=== PATIENT | female | born 1955 | race Hispanic/Latino ===

== ENCOUNTER 2018-12-19 02:17 | Emergency (ER) | payer BC, MEDICARE ==
[~2018-12-19] VITALS: Ht 149.9 cm; Wt 61.2 kg
--- OUTSIDE RECORDS SUMMARY | 2018-12-19 02:20 | XMS REPORT | Summary of Care ---
Author Organization Unknown Address Unknown Phone Unavailable Encounter HQ Rosanne(GREG) [id number] Date(s): 05/18/15 - 05/18/15 [facility] [address] Outpatient Imaging [facility] [address] [place] [address] [address] [place], [place] [address]- [phone] Discharge Disposition: Home Physician Attending: Elisha Purcell MD Vital Signs No data available for this section Problem List Condition Effective Dates Status Health Status Informant Acute laryngitis1 05/11/15 Active Acute pharyngitis2 05/11/15 Active Anemia3 05/23/12 Active Benign hypertension4 Active Diverticular disease Active of colon5 Gastroesophageal 01/13/11 Active reflux disease6 Hemangioma of liver7 Active Hypercholesterolemia Active 8 Microscopic 05/13/15 Active hematuria9 Zgafhjwqykojru19 Active Roqfzqzaps89 Active Physical examination 05/11/15 Active yxhuiynvh47 Spasm of back 09/12/14 Active npdjdci26, 14, 15 Tension-type 01/12/15 Active minaqjjy83, 17 Urinary tract 05/13/15 Active infectious syyrboy99 1Data migrated from [employer] on 05/20/15. 2Data migrated from [employer] on 05/20/15. 3Data migrated from [employer] on 04/11/15. 4Data migrated from [employer] on 04/11/15. 5Data migrated from [employer] on 04/11/15. 6Data migrated from [employer] on 04/11/15. 7Data migrated from [employer] on 04/11/15. 8Data migrated from [employer] on 04/11/15. 9Data migrated from [employer] on 05/20/15. 10Data migrated from [employer] on 04/11/15. 11Data migrated from [employer] on 04/11/15. 12Data migrated from [employer] on 05/20/15. 13Data migrated from [employer] on 05/20/15. 14Data migrated from [employer] on 04/14/15. 15Data migrated from [employer] on 04/11/15. 16Data migrated from [employer] on 05/20/15. 17Data migrated from [employer] on 04/14/15. 18Data migrated from [employer] on 05/20/15. Allergies, Adverse Reactions, Alerts Substance Reaction Severity Status ciprofloxacin1 Active 1Data migrated from [employer] on 03/10/15. Originally documented as CIPRO. Medications No data available for this section Results No data available for this section Immunizations No data available for this section Procedures No data available for this section Social History No data available for this section Assessment and Plan No data available for this section
--- OUTSIDE RECORDS SUMMARY | 2018-12-19 02:20 | XMS REPORT | Continuity of Care Document ---
Author Author [facility] Interface Address Unknown Phone Unavailable Problems Problem Status Onset Date Classification Date Reported Comments Source Acute URI Resolved 05/22/2017 Problem 11/29/2018 [facility] Dizziness Resolved 01/18/2017 Problem 11/29/2018 [facility] Hypercholesterolemia Resolved 01/18/2017 Problem 11/29/2018 [facility], [facility] Z12.31 - ENCNTR SCREEN MAMMOGRAM FOR MA Active 12/16/2016 [facility] K55.8 Active 05/06/2016 [facility] K55.8 COLITIS, OTHER VASCULAR DISORDERS Active 05/06/2016 [facility] DX: M54.5 Active 03/10/2016 [facility] Microscopic hematuria<sup>10</sup> Resolved 05/13/2015 Problem 11/29/2018 Data migrated from [employer] on 05/20/15. [facility] Microscopic hematuria<sup>9</sup> Active 05/13/2015 Problem 05/21/2015 9Data migrated from [employer] on 05/20/15. [facility] Urinary tract infectious disease<sup>18</sup> Active 05/13/2015 Problem 05/21/2015 18Data migrated from [employer] on 05/20/15. [facility] Acute laryngitis<sup>1</sup> Resolved 05/11/2015 Problem 11/29/2018 Data migrated from [employer] on 05/20/15. [facility] Acute pharyngitis<sup>2</sup> Resolved 05/11/2015 Problem 11/29/2018 Data migrated from [employer] on 05/20/15. [facility] Physical examination procedure<sup>14</sup> Resolved 05/11/2015 Problem 11/29/2018 Data migrated from [employer] on 05/20/15. [facility], [place] Physical examination procedure<sup>12</sup> Active 05/11/2015 Problem 05/21/2015 12Data migrated from [employer] on 05/20/15. [facility] Tension-type headache<sup>18, 19</sup> Resolved 01/12/2015 Problem 11/29/2018 Data migrated from [employer] on 04/14/15. [facility], [place] Tension-type headache<sup>16, 17</sup> Active 01/12/2015 Problem 05/21/2015 17Data migrated from [employer] on 04/14/15. [facility] Spasm of back muscles<sup>15, 16, 17</sup> Resolved 09/12/2014 Problem 11/29/2018 Data migrated from [employer] on 04/11/15. [facility], [place] Spasm of back muscles<sup>13, 14, 15</sup> Active 09/12/2014 Problem 05/21/2015 15Data migrated from [employer] on 04/11/15. [facility] Urinary tract infectious disease<sup>20, 21, 22</sup> Resolved 10/17/2013 Problem 11/29/2018 Data migrated from [employer] on 05/20/15. [facility], [place] HYPERTENSION Active 03/26/2013 [facility] Otalgia<sup>13</sup> Resolved 11/29/2012 Problem 11/29/2018 Data migrated from [employer] on 05/29/15. [facility], [place] Acute urinary tract infection<sup>3</sup> Resolved 09/18/2012 Problem 11/29/2018 Data migrated from [employer] on 05/29/15. [facility], [place] Anemia<sup>4</sup> Resolved 05/23/2012 Problem 11/29/2018 Data migrated from [employer] on 04/11/15. [facility], [place] Anemia<sup>3</sup> Active 05/23/2012 Problem 05/21/2015 3Data migrated from [employer] on 04/11/15. [facility] V76.12 - SCREEN MAMMOGRA Active 10/24/2011 [facility] Gastroesophageal reflux disease<sup>7</sup> Active 01/13/2011 Problem 11/29/2018 Data migrated from [employer] on 04/11/15. [facility], [place],[facility] Gastroesophageal reflux disease<sup>6</sup> Active 01/13/2011 Problem 05/21/2015 6Data migrated from [employer] on 04/11/15. [facility] Hip pain Active Problem 11/29/2018 [facility], [facility] Benign hypertension<sup>5</sup> Active Problem 11/29/2018 Data migrated from [employer] on 04/11/15. [facility], [place] Bone disorder Active Problem 11/29/2018 [facility], [facility] Diverticular disease of colon<sup>6</sup> Active Problem 11/29/2018 Data migrated from [employer] on 04/11/15. [facility], [place] Epigastric pain Active Problem 11/29/2018 [facility], [facility] Bad odor of urine Resolved Problem 11/29/2018 [facility], [facility] Headache Resolved Problem 11/29/2018 [facility], [facility] Hemangioma of liver<sup>8</sup> Active Problem 11/29/2018 Data migrated from [employer] on 04/11/15. [facility], [place] HTN - Hypertension Resolved Problem 11/29/2018 [facility], [facility] Hypercholesterolemia<sup>9</sup> Active Problem 11/29/2018 Data migrated from [employer] on 04/11/15. [facility], [place] Physical exam Active Problem 11/29/2018 [facility], [facility] Osteoarthritis<sup>11</sup> Active Problem 11/29/2018 Data migrated from [employer] on 04/11/15. [facility] Osteoarthritis Active Problem 11/29/2018 [facility] Osteopenia<sup>12</sup> Active Problem 11/29/2018 Data migrated from [employer] on 04/11/15. [facility] Osteopenia Resolved Problem 11/29/2018 [facility] Hyperlipidemia Active Problem 11/29/2018 [facility] Dysuria Active Problem 11/29/2018 [facility] Benign hypertension<sup>4</sup> Active Problem 05/21/2015 4Data migrated from [employer] on 04/11/15. [facility] Diverticular disease of colon<sup>5</sup> Active Problem 05/21/2015 5Data migrated from [employer] on 04/11/15. [facility] Hemangioma of liver<sup>7</sup> Active Problem 05/21/2015 7Data migrated from [employer] on 04/11/15. [facility] Hypercholesterolemia<sup>8</sup> Active Problem 05/21/2015 8Data migrated from [employer] on 04/11/15. [facility] Osteoarthritis<sup>10</sup> Active Problem 05/21/2015 10Data migrated from [employer] on 04/11/15. [facility] Osteopenia<sup>11</sup> Active Problem 05/21/2015 11Data migrated from [employer] on 04/11/15. [facility] FHx: diabetes mellitus Active Problem 11/29/2018 [facility] OTHER VASCULAR DISORDERS OF INTESTINE Active [facility] Medications Medication Details Route Status Patient Instructions Ordering Provider Order Date Source {4 (risedronate sodium 35 MG Enteric Coated Tablet) } Pack [Atelvia] 35 mg=1 tab, PO, qWeek, # 12 tab, 3 Refill(s), Pharmacy: [id number] Active 07/24/2018 [facility] lisinopril 10 mg oral tablet 10 mg=1 tab, PO, Daily, # 90 tab, 2 Refill(s), Pharmacy: [id number] Active 07/24/2018 [facility] Nitrofurantoin 100 MG Oral Capsule [Macrobid] 100 mg=1 cap, PO, BID, X 7 day, # 14 cap, 0 Refill(s), Pharmacy: [facility] Active 05/02/2018 [facility] Sulfamethoxazole 800 MG / Trimethoprim 160 MG Oral Tablet [Bactrim] 1 tab, PO, BID, for UTI, X 3 day, # 6 tab, 0 Refill(s), Pharmacy: [id number] Active 04/24/2018 [facility] lisinopril 10 mg oral tablet 10 mg=1 tab, PO, Daily, # 90 tab, 2 Refill(s), Pharmacy: [facility] Active 01/16/2018 Medical [facility] Nitrofurantoin 100 MG Oral Capsule [Macrobid] 100 mg=1 cap, PO, BID, X 7 day, # 14 cap, 0 Refill(s), Pharmacy: [facility] No Longer Active 11/23/2017 Medical [facility] ibuprofen 800 mg oral tablet 800 mg=1 tab, PO, Q8H, # 30 tab, 1 Refill(s), Pharmacy: [facility] Active 11/20/2017 Medical Group {4 (risedronate sodium 35 MG Enteric Coated Tablet) } Pack [Atelvia] 35 mg=1 tab, PO, qWeek, # 12 tab, 3 Refill(s), Pharmacy: [facility] Active 10/02/2017 Medical [facility] lisinopril 10 mg oral tablet 10 mg=1 tab, PO, Daily, # 90 tab, 1 Refill(s), Pharmacy: [facility] Active 10/02/2017 [facility] Sulfamethoxazole 800 MG / Trimethoprim 160 MG Oral Tablet [Bactrim] 1 tab, PO, BID, for UTI, X 3 day, # 6 tab, 0 Refill(s), Pharmacy: [facility] Active 10/02/2017 [facility] Drug Treatment Unknown - unknown Active [facility] Allergies, Adverse Reactions, Alerts Substance Category Reaction Severity Reaction type Status Date Reported Comments Source ciprofloxacin<sup>1</sup> Assertion Drug allergy Active 10/17/2013 1Data migrated from [employer] on 03/10/15. Originally documented as [facility]. [facility] Allergies Unknown propensity to adverse reactions [facility] Immunizations Immunization Date Given Site Status Last Updated Comments Source influenza virus vaccine, inactivated 07/24/2018 Right Deltoid completed [facility] influenza virus vaccine, inactivated<sup>1</sup> 07/19/2017 Right Deltoid completed [facility] Result Comment: Lot#: [id number] Exp: 05-12-2018 [facility]: [id number] Location:Right Deltoid Patient did well before and after the injection. [facility] influenza virus vaccine, inactivated 09/13/2016 Right Deltoid completed [facility] Results Order Name Results Value Reference Range Date Interpretation Comments Source Bone Density [employer] MA Bone Density [employer] MA BONE DENSITY EVALUATION: 10/09/2017 CLINICAL DATA: Post menopausal and follow-up to previous study. /M89.9 Disorder Of Bone, Unspecified DISEASE HISTORY: Rheumatoid arthritis. COMPARISON: 10/03/2016 Right femur neck using a Hologic unit from [facility] with reported medium fracture risk, BMD of 0.665g/cm2, T- score of -1.70, and Z-score of -0.40. 10/03/2016 Left femur neck using a Hologic unit from [facility] with reported medium fracture risk, BMD of 0.603g/cm2, T- score of -2.20, and Z-score of -0.90. 10/03/2016 AP L1-L4 region of spine using a Hologic unit from [facility] with reported normal fracture risk, BMD of 0.958g/cm2, T-score of -0.80, and Z-score of 0.80. FINDINGS: Bone density evaluation was performed 10/09/2017 on the right femur neck using a Hologic unit. The BMD average for the exam is 0.693 g/cm2. The T-score is - 1.40 and the Z-score is -0.10. Since the previous similar exam of 10/03/2016, there has been a +0.028 or +4.2% change in the BMD value which represents no significant interval change in bone density. This matches the World Health Organization's criteria for osteopenia and places the patient at a medium risk for fracture. An additional bone density evaluation was performed 10/09/2017 on the left femur neck using a Hologic unit. The BMD average for the exam is 0.591 g/cm2. The T- score is -2.30 and the Z-score is -1.00. Since the previous similar exam of 10/03/2016, there has been a -0.012 or -2.0% change in the BMD value which represents no significant interval change in bone density. This matches the World Health Organization's criteria for osteopenia and places the patient at a medium risk for fracture. An additional bone density evaluation was performed 10/09/2017 on the AP L1-L4 region of spine using a Hologic unit. The BMD average for the exam is 0.958 g/cm2. The T-score is -0.80 and the Z-score is 0.90. Since the previous similar exam of 10/03/2016, there has been no change in bone density. This matches the World Health Organization's criteria for normal bone density and places the patient within normal limits of fracture risk. IMPRESSION: OSTEOPENIA Patient is at medium risk for fracture. Compared to BMD of prior exam, there has been no significant change in bone density. Patient consult w/primary care provider is recommended. This exam was interpreted at [id number] at [facility]. Ioana mckeon/penrad:10/09/2017 12:51:42 Public Affairs Director(s): Trisha ARZATE)(M), [facility] 10/09/2017 - - Read by: Ioana Lowe MD Dictated Date/time: 10/09/17 12:51 Electronically Signed by: Ioana Lowe MD 10/09/17 12:51 FINAL REPORT [facility] Abdomen LUQ US Abdomen LUQ US Patient Name: KWASI GENTILE : 1955; Age: 61 years y/o Female MR: [id number] Study: Abdomen LUQ US 10/26/2016 2:23 PM DINING ROOM COORDINATOR Ordering Physician: Elisha Lassiter MD Clinical Indication: Left upper abdominal quadrant pain for 2 months. Comparison: 12/16/2009 TECHNIQUE: Grayscale and limited color sonographic evaluation of the left upper abdominal quadrant was performed with standard technique. FINDINGS: PANCREAS: The visualized portions of the pancreas are normal. LEFT KIDNEY: Mild left renal cortical atrophy. A small well marginated hyperechoic lesion measuring 1.0 cm (previously 0.8 cm) is seen in the midportion of the left kidney exhibiting fat attenuation on prior imaging consistent with angiomyolipoma. Size: 9.2 x 3.9 x 3.2 cm. SPLEEN: Normal size, shape, and echotexture without enlargement or discrete lesion. Spleen size: 9.2 cm at maximum. IMPRESSION: 1. Mild left renal cortical atrophy. 2. Slightly increasing size hyperattenuating left renal lesion consistent with angiomyolipoma on prior CT. SL: [id number] 10/26/2016 - - Read by: Rigo Lau MD Dictated Date/time: 10/26/16 15:28 Electronically Signed by: Rigo Lau MD 10/26/16 15:35 FINAL REPORT [facility] Bone Density DXA Dual [employer] MA Bone Density DXA [employer] MA - Bone Density DXA [employer] MA BONE DENSITY EVALUATION: 10/03/2016 CLINICAL DATA: Post menopausal. COMPARISON: 05/18/2015 Right femur neck using [employer] X-Ray Absorptiometry from [facility] with reported medium fracture risk, BMD of 0.802g/cm2, T-score of -1.70, Z-score of -0.20, 77.0% reference and 97.0% age-match bone mineralization. 05/18/2015 Left femur neck using [employer] X-Ray Absorptiometry from [facility] with reported medium fracture risk, BMD of 0.711g/cm2, T-score of -2.40, Z-score of -0.80, 68.0% reference and 86.0% age-match bone mineralization. 05/18/2015 AP L1-L4 region of spine using Lun[employer] X-Ray Absorptiometry from [facility] with reported normal fracture risk, BMD of 1.232g/cm2, T-score of 0.40, Z-score of 2.10, 104.0% reference and 125.0% age-match bone mineralization. FINDINGS: Bone density evaluation was performed 10/03/2016 on the AP L1-L4 region of spine using a Hologic unit. The BMD average for the exam is 0.958 g/cm2. The T-score is -0.80 and the Z-score is 0.80. This matches the World Health Organization's criteria for normal bone density and places the patient within normal limits of fracture risk. An additional bone density evaluation was performed 10/03/2016 on the right femur neck using a Hologic unit. The BMD average for the exam is 0.665 g/cm2. The T-score is -1.70 and the Z-score is -0.40. This matches the World Health Organization's criteria for osteopenia and places the patient at a medium risk for fracture. An additional bone density evaluation was performed 10/03/2016 on the left femur neck using a Hologic unit. The BMD average for the exam is 0.603 g/cm2. The T- score is -2.20 and the Z-score is -0.90. This matches the World Health Organization's criteria for osteopenia and places the patient at a medium risk for fracture. IMPRESSION: OSTEOPENIA Patient is at medium risk for fracture. Professional services are provided by the [facility]. This exam was dictated and interpreted by [id number] at [facility]. Negrito Nieves M.D., jp/shaylee:10/03/2016 17:17:34 Public Affairs Director: Maday Ambriz, [facility] 10/03/2016 - - Read by: Negrito Nieves MD Dictated Date/time: 10/03/16 17:17 Electronically Signed by: Negrito Nieves MD 10/03/16 17:17 FINAL REPORT [facility] CHEM PANEL POC Creatinine 0.9 mg/dL 0.5 - 1.4 05/11/2016 [facility] CHEM PANEL eGFR 69 mL/min/1.73m2 05/11/2016 Result Comment: The eGFR is calculated using the CKD-EPI formula. In most young, healthy individuals the eGFR will be >90 mL/min/1.73m2. The eGFR declines with age. An eGFR of 60-89 may be normal in some populations, particularly the elderly, for whom the CKD-EPI formula has not been extensively validated. Use of the eGFR is not recommended in the following populations: Individuals with unstable creatinine concentrations, including patients and those with serious co-morbid conditions. Patients with extremes in muscle mass or diet. The data above are obtained from the National Kidney Disease Education Program (NKDEP) which additionally recommends that when the eGFR is used in patients with extremes of body mass index for purposes of drug dosing, the eGFR should be multiplied by the estimated BMI. [facility] Abdomen w/wo contrast MRA Abdomen w/wo contrast MRA Study: Abdomen w/wo contrast MRA Age Female 60 years old Clinical Indication: K55.8 Other vascular disorders of intestine; Comparison: None Technique: Contrast-enhanced images of the aorta have been performed in sagittal projection after bolus administration of 22 mL of Dotarem gadolinium contrast. Findings: The examination reveals smooth aortic contour from the aortic valve to the bifurcation. There is no evidence of aneurysm or dissection. There is some mild narrowing of the origin of the celiac axis. (Series 6C image 228) The superior mesenteric artery is patent at its origin. The renal arteries appear patent bilaterally. There is no significant atherosclerosis of the iliac vessels. IMPRESSION: 1. Mild narrowing of the origin of the celiac axis (less than 50%). 2. Normal appearance of the superior mesenteric and renal vessels. 3. Otherwise negative MRA of the thoracic and abdominal aorta. SL: [id number] 05/11/2016 - - Read by: Dhaval Herrera MD Dictated Date/time: 05/12/16 08:48 Electronically Signed by: Dhaval Herrera MD 05/12/16 09:[address] [facility] Renal Lasix Scan RI Renal Lasix Scan RI DIURETIC RENAL SCAN: PROCEDURE: 10.0 mCi of technetium 99m MAG3 were given intravenously followed by posterior perfusion and static imaging of the urinary tract. 40 mg of furosemide were given intravenously 15 minutes following injection of radionuclide. Quantitative values and time/activity curves were generated. HISTORY: Low back pain COMPARISON: CT abdomen dated 12/28/2009 FINDINGS: Blood flow images reveal normal perfusion of both kidneys. Functional imaging over 30 minutes reveals normal concentration and excretion phases bilaterally. There is normal excretion from both kidneys prior to Lasix administration. The following quantitative measures were obtained: Time to peak parenchymal activity (normal equals 3-5 minute/180-300 seconds) Right: 2.4 minutes Left: 2.4 minutes Half time excretion (normal equals 8-12 minutes/480-720 seconds) Right: 8 minutes Left: 6 minutes Percent uptake: Right: 47 % Left: 53 % ERPF: Right: 182 mL/min Left: 201 mL/min 30 minute:peak ratio (normal equal to or less than 0.3) Right: 0.12 Left: 0.11 T half post Lasix (normal less than 10 minutes, hydronephrosis greater than 20 minutes). Right: Not applicable Left: Not applicable IMPRESSION: Normal examination. SL: [id number] 03/15/2016 - - Read by: Jayme Morris MD Dictated Date/time: 03/15/16 13:28 Electronically Signed by: Jayme Morris MD 03/15/16 13:32 FINAL REPORT [facility] Bone Density DXA Dual Energy MA Bone Density DXA [employer] MA - Bone Density DXA [employer] MA BONE DENSITY EVALUATION: 05/18/2015 CLINICAL DATA: Clinical risk for osteoporosis. COMPARISON: 02/29/2008 Left femur neck using a Hologic unit from [facility] with reported medium fracture risk, BMD of 0.711g/cm2, T- score of -1.40, Z-score of -0.30, 81.0% reference and 95.0% age-match bone mineralization. 02/29/2008 AP L1-L4 region of spine using a Hologic unit from [facility] with reported normal fracture risk, BMD of 1.080g/cm2, T-score of 0.30, Z-score of 1.30, 103.0% reference and 116.0% age- match bone mineralization. FINDINGS: Bone density evaluation was performed 05/18/2015 on the AP L1-L4 region of spine using Lunar [employer] Energy X-Ray Absorptiometry. The BMD average for the exam is 1.232 g/cm2. The T-score is 0.40 and the Z-score is 2.10. These values indicate 104.0% of bone mineralization for young normals and 125.0% for age- matched controls. This matches the World Health Organization's criteria for normal bone density and places the patient within normal limits of fracture risk. An additional bone density evaluation was performed 05/18/2015 on the right femur neck using Lunar [employer] X-Ray Absorptiometry. The BMD average for the exam is 0.802 g/cm2. The T-score is -1.70 and the Z-score is -0.20. These values indicate 77.0% of bone mineralization for young normals and 97.0% for age-matched controls. This matches the World Health Organization's criteria for osteopenia and places the patient at a medium risk for fracture. An additional bone density evaluation was performed 05/18/2015 on the left femur neck using [employer] X-Ray Absorptiometry. The BMD average for the exam is 0.711 g/cm2. The T-score is -2.40 and the Z-score is -0.80. These values indicate 68.0% of bone mineralization for young normals and 86.0% for age- matched controls. This matches the World Health Organization's criteria for osteopenia and places the patient at a medium risk for fracture. IMPRESSION: OSTEOPENIA Based on T-scores, if the patient is postmenopausal or in the menopausal transition, the patient is considered at medium risk for fracture. However, the patient estrada on her intake questionnaire that she has not gone through menopause, in which case interpretation would optimally be based on Z-scores, which are within the expected range for age. Patient consult w/primary care provider and correlation with menopausal status is recommended. This exam was dictated and interpreted by [address] [place] [address]. Rola Torres M.D. dl/:05/19/2015 10:18:31 Public Affairs Director: Trisha ARZATE)(Joy), [facility] [facility] 05/18/2015 - - Read by: Rola Torres MD Dictated Date/time: 05/19/15 10:18 Electronically Signed by: Rola Torres MD 05/19/15 10:18 FINAL REPORT OLIVIA [facility] Vital Signs Vital Sign Value Date Comments Source Height 147.32 cm 07/24/2018 [facility] Weight 61.364 07/24/2018 [facility] BMI Calculated 28.27 07/24/2018 [facility] Heart Rate 71 07/24/2018 [facility] Respitory Rate 20 07/24/2018 [facility] Temperature Oral (F) 97.9 F 07/24/2018 [facility] Systolic (mm Hg) 135 07/24/2018 [facility] Diastolic (mm Hg) 80 07/24/2018 [facility] BMI Calculated 27.23 04/24/2018 [facility] Weight 59.091 04/24/2018 [facility] Height 147.32 cm 04/24/2018 [facility] Heart Rate 84 04/24/2018 [facility] Temperature Oral (F) 98.2 F 04/24/2018 [facility] Systolic (mm Hg) 113 04/24/2018 [facility] Diastolic (mm Hg) 74 04/24/2018 [facility] BMI Calculated 26.81 01/16/2018 [facility] Weight 58.182 01/16/2018 [facility] Temperature Oral (F) 97.9 F 01/16/2018 [facility] Heart Rate 71 01/16/2018 [facility] Height 147.32 cm 01/16/2018 [facility] Systolic (mm Hg) 114 01/16/2018 [facility] Diastolic (mm Hg) 78 01/16/2018 [facility] Weight 57.784 11/20/2017 [facility] BMI Calculated 25.73 11/20/2017 [facility] Height 149.86 cm 11/20/2017 [facility] Temperature Oral (F) 97.9 F 11/20/2017 [facility] Heart Rate 76 11/20/2017 [facility] Systolic (mm Hg) 110 11/20/2017 [facility] Diastolic (mm Hg) 70 11/20/2017 [facility] Weight 128 10/16/2017 [facility] Height 149.86 cm 10/02/2017 [facility] Weight 58.636 10/02/2017 [facility] BMI Calculated 26.11 10/02/2017 [facility] Temperature Oral (F) 98.4 F 10/02/2017 [facility] Heart Rate 71 10/02/2017 [facility] Systolic (mm Hg) 121 10/02/2017 [facility] Diastolic (mm Hg) 77 10/02/2017 [facility] Group Encounters Location Location Details Encounter Type Encounter Number Reason For Visit Attending Provider ADM Date DC Date Status Source Outpatient [id number] V76.12 - SCREEN MAMMOGRA TERESA SOW 11/21/2011 Active MH OPID [facility] Outpatient Imaging [facility] Outpatient [id number] Elisha Lassiter 05/18/2015 05/19/2015 MH OPID [facility] Outpatient [id number] ELIHSA LASSITER 08/13/2015 Active [facility] Outpatient [id number] ELISHA LASSITER 11/18/2015 Active [facility] Outpatient [id number] ELISHA LASSITER 11/19/2015 Active [facility] Outpatient [id number] ELISHA LASSITER 01/01/2016 Active [facility] Outpatient [id number] Teodoro Eli DAVID 03/15/2016 03/16/2016 [facility] Outpatient [id number] ELISHA LASSITER 03/23/2016 Active [facility] Outpatient [id number] Yevgeniy Palmer 05/11/2016 05/12/2016 [facility] Outpatient [id number] ELISHA LASSITER 05/19/2016 Active [facility] Outpatient [id number] ELISHA LASSITER 09/13/2016 Active [facility] Outpatient Imaging [facility] Outpatient [id number] Elisha Lassiter 10/03/2016 10/04/2016 MH OPID [facility] Outpatient [id number] JARVIS DYER 10/17/2016 Active [facility] Outpatient [id number] ELISHA LASSITER 10/26/2016 Active [facility] Outpatient Imaging [facility] Outpt Diag Services [id number] Elisha Lassiter 10/26/2016 10/27/2016 MH OPID [facility] Outpatient [id number] ELISHA LASSITER 01/18/2017 Active [facility] Outpatient [id number] ELISHA LASSITER 05/22/2017 Active [facility] Outpatient [id number] ELISHA LASSITER 07/19/2017 Active [facility] Outpatient [id number] ELISHA LASSITER 10/02/2017 Active [facility] Primary Care [facility] Outpatient [id number] Elisha Lassiter 10/02/2017 10/03/2017 Medical Group [facility] Outpatient Imaging [facility] Outpatient [id number] Elisha Lassiter 10/09/2017 10/10/2017 MH OPID [facility] Outpatient [id number] ELISHA LASSITER 11/20/2017 Active [facility] Primary Care [facility] Outpatient [id number] Elisha Lassiter 11/20/2017 11/21/2017 [facility] Group Outpatient [id number] ELISHA LASSITER 01/16/2018 Active [facility] Primary Care [facility] Outpatient [id number] Elisha Lassiter 01/16/2018 01/17/2018 [facility] Group Outpatient [id number] ELISHA LASSITER 04/24/2018 Active [facility] Primary Care [facility] Outpatient [id number] Elisha Lassiter 04/24/2018 04/25/2018 Medical Group [facility] Primary Care [facility] Phone Message [id number] 05/01/2018 05/03/2018 Medical [facility] Outpatient [id number] ELISHA LASSITER 07/24/2018 Active [facility] Primary Care [facility] Outpatient [id number] Elisha Lassiter 07/24/2018 2018 Medical [facility] Outpatient [id number] ELISHA LASSITER 10/18/2018 Active [facility] Outpatient [id number] ELISHA LASSITER 12/20/2018 Active [facility] Outpatient [id number] ELISHA LASSITER 01/21/2019 Active [facility] Outpatient [id number] HYPERTENSION CARIN ELISHAATES Cancel [facility] Procedures Procedure Code Date Perfomer Comments Source Colonoscopy<sup>1</sup> [id number] 06/13/2018 Diverticulosis in the sigmoid colon Repeat in 10 years. [facility] Mammogram<sup>1</sup> [id number] 12/01/2017 normal, at [facility] Mammogram<sup>2</sup> [id number] 12/01/2017 normal, at [facility] Health Education/Supportive Counseling HE001 10/17/2017 Carlos Jeffries Health Education/Supportive Counseling HE001 09/18/2017 Carlos Jeffries Pap smear and HPV cotesting [id number] 09/15/2017 [facility] Health Education/Supportive Counseling HE001 08/18/2017 Carlos Jeffries section [id number] Medical Group Suspension of bladder [id number] Medical Group section [id number] OPID [facility] Suspension of bladder [id number] OPID [facility] section [id number] [facility] Suspension of bladder [id number] [facility] section [id number] [facility] Suspension of bladder [id number] [facility]
--- OUTSIDE RECORDS SUMMARY | 2018-12-19 02:21 | XMS REPORT | Summary of Care ---
Author Author [facility] Organization [facility] Address Unknown Phone Unavailable Encounter KANDY Lay(GREG) [id number] Date(s): 03/15/16 - 03/15/16 [facility] [address] [place] [address]- [phone] Discharge Disposition: Home Attending Physician: Teodoro Friedman MD Referring Physician: Teodoro Friedman MD Vital Signs No data available for this section Problem List Condition Effective Dates Status Health Status Informant Acute laryngitis1 05/11/15 Resolved Acute pharyngitis2 05/11/15 Resolved Acute urinary tract 09/18/12 Resolved infection3 Anemia4 05/23/12 Active Benign hypertension5 Active Diverticular disease Active of colon6 Gastroesophageal 01/13/11 Active reflux disease7 Hemangioma of liver8 Active HTN - Resolved Hypertension(Confirm ed) Hypercholesterolemia Active 9 Hypercholesterolemia Resolved (Confirmed) Microscopic 05/13/15 Resolved lkajnlupg24 Cteyxbklrjgtkm91 Active Osteoarthritis(Confi Resolved rmed) Tofdpzjjay55 Active Osteopenia(Confirmed Resolved ) Hsjfpjm03 11/29/12 Resolved Physical examination 05/11/15 Active kosegoobb04 Spasm of back 09/12/14 Resolved ipiagvf34, 16, 17 Tension-type 01/12/15 Resolved weyaxvvz83, 19 Urinary tract 10/17/13 Resolved infectious bykmcuu72, 21, 22 1Data migrated from [employer] on 05/20/15. 2Data migrated from [employer] on 05/20/15. 3Data migrated from [employer] on 05/29/15. 4Data migrated from [employer] on 04/11/15. 5Data migrated from [employer] on 04/11/15. 6Data migrated from [employer] on 04/11/15. 7Data migrated from [employer] on 04/11/15. 8Data migrated from [employer] on 04/11/15. 9Data migrated from [employer] on 04/11/15. 10Data migrated from [employer] on 05/20/15. 11Data migrated from [employer] on 04/11/15. 12Data migrated from [employer] on 04/11/15. 13Data migrated from [employer] on 05/29/15. 14Data migrated from [employer] on 05/20/15. 15Data migrated from [employer] on 05/20/15. 16Data migrated from [employer] on 04/14/15. 17Data migrated from [employer] on 04/11/15. 18Data migrated from [employer] on 05/20/15. 19Data migrated from [employer] on 04/14/15. 20Data migrated from [employer] on 05/29/15. 21Data migrated from [employer] on 05/29/15. 22Data migrated from [employer] on 05/20/15. Allergies, Adverse Reactions, Alerts Substance Reaction Severity Status NKDA Active Medications No data available for this section Results No data available for this section Immunizations No data available for this section Procedures Procedure Date Related Diagnosis Body Site section Suspension of bladder Social History Social History Type Response Smoking Status Never smoker; Exposure to Tobacco Smoke None; Cigarette Smoking Last 365 Days No; Reg Smoking Cessation Counseling No Assessment and Plan No data available for this section
--- OUTSIDE RECORDS SUMMARY | 2018-12-19 02:21 | XMS REPORT | Summary of Care ---
Author Author [facility] Outpatient Imaging [facility] Outpatient Imaging [facility] Address Unknown Phone Unavailable Encounter HQ Reggie_derek(FIN) [id number] Date(s): 10/26/16 - 10/26/16 [facility] Outpatient Imaging [facility] [address] [place], [place] [address]- [phone] Discharge Disposition: Home or Self Care Attending Physician: Elisha Purcell MD Vital Signs No data available for this section Problem List Condition Effective Dates Status Health Status Informant Acute laryngitis1 05/11/15 Resolved Acute pharyngitis2 05/11/15 Resolved Acute urinary tract 09/18/12 Resolved infection3 Anemia4 05/23/12 Resolved Benign hypertension5 Active Diverticular disease Active of colon6 Epigastric Active pain(Confirmed) Gastroesophageal 01/13/11 Active reflux disease7 Hemangioma of liver8 Active HTN - Resolved Hypertension(Confirm ed) Hypercholesterolemia Active 9 Hypercholesterolemia Active (Confirmed) Microscopic 05/13/15 Resolved lpvplejfk75 Nwrmydyynbuzii03 Active Osteoarthritis(Confi Active rmed) Tfnubsjqux62 Active Osteopenia(Confirmed Resolved ) Iqfyszr16 11/29/12 Resolved Physical examination 05/11/15 Resolved lvtsflnuf19 Spasm of back 09/12/14 Resolved pdaozzh61, 16, 17 Tension-type 01/12/15 Resolved dhtbnejx72, 19 Urinary tract 10/17/13 Resolved infectious , 21, 22 1Data migrated from [employer] [...] No data available for this section Immunizations Given and Recorded Vaccine Date Status Refusal Reason influenza virus vaccine, inactivated 09/13/16 Given Procedures Procedure Date Related Diagnosis Body Site section Suspension of bladder Social History Social History Type Response Exercise Exercise duration: 30. Exercise frequency: Daily. Exercise type: Walking. Alcohol Never Smoking Status Never smoker; Exposure to Tobacco Smoke None; Cigarette Smoking Last 365 Days No; Reg Smoking Cessation Counseling No Assessment and Plan No data available for this section
--- OUTSIDE RECORDS SUMMARY | 2018-12-19 02:21 | XMS REPORT | Summary of Care ---
Author Author [facility] Outpatient Imaging [facility] Outpatient Imaging [facility] Address Unknown Phone Unavailable Encounter KANDY Lay(GREG) [id number] Date(s): 10/03/16 - 10/03/16 [facility] Outpatient Imaging [facility] [address] [place], [place] [address]- [phone] Discharge Disposition: Home or Self Care Attending [...] 9 Hypercholesterolemia Active (Confirmed) Microscopic 05/13/15 Resolved Eyexushwkymzca85 Active Osteoarthritis(Confi Active rmed) Gxsenyowgr78 Active Osteopenia(Confirmed Resolved ) Uxkpfct62 11/29/12 Resolved Physical examination 05/11/15 Resolved Spasm of back 09/12/14 Resolved dfnoodm23, 16, 17 Tension-type 01/12/15 Resolved , 19 Urinary tract 10/17/13 Resolved infectious , [...]
--- OUTSIDE RECORDS SUMMARY | 2018-12-19 02:21 | XMS REPORT | Summary of Care ---
Author Author [facility] Organization [facility] Address Unknown Phone Unavailable Encounter HQ Rosanne(GREG) [id number] Date(s): 05/11/16 - 05/11/16 [facility] [address] [place] [address]- [phone] Discharge Disposition: Home Attending Physician: Yevgeniy Palmer MD Admitting Physician: Yevgeniy Palmer MD Referring Physician: Yevgeniy Palmer MD Vital Signs No data available for [...] 9 Hypercholesterolemia Resolved (Confirmed) Microscopic 05/13/15 Resolved athgwdkva60 Vpwqieagwdrlmn77 Active Osteoarthritis(Confi Resolved rmed) Bkmajirvco37 Active Osteopenia(Confirmed Resolved ) Gxfxrno35 11/29/12 Resolved Physical examination 05/11/15 Active zhoeuucgk14 Spasm of back 09/12/14 Resolved piujgab79, 16, 17 Tension-type 01/12/15 Resolved rcewudxc33, 19 Urinary tract 10/17/13 Resolved infectious kfojygz94, 21, 22 1Data migrated from [employer] [...] No data available for this section Results CHEM PANEL Most recent to 1 oldest [Reference Range]: eGFR 69 mL/min/1.73m2 1 *NA* (05/11/16 4:05 PM) POC Creatinine 0.9 mg/dL [0.5-1.4 mg/dL] (05/11/16 4:05 PM) 1Result Comment: The eGFR is calculated using the [...] from the National Kidney Disease Education Program ( NKDEP) which additionally recommends that when the eGFR is used in patients with extremes of body mass index for purposes of drug dosing, the eGFR should be mul tiplied by the estimated BMI. Immunizations No data available for this section Procedures Procedure Date Related Diagnosis Body Site section Suspension of bladder Social History Social History Type Response Smoking Status Never smoker; Exposure to Tobacco Smoke None; Cigarette Smoking Last 365 Days No; Reg Smoking Cessation Counseling No Assessment and Plan No data available for this section
--- OUTSIDE RECORDS SUMMARY | 2018-12-19 02:21 | XMS REPORT | Summary of Care ---
Author Author [facility] Outpatient Imaging [facility] Outpatient Imaging [facility] Address Unknown Phone Unavailable Encounter HQ Reggie_derek(FIN) [id number] Date(s): 10/09/17 - 10/09/17 [facility] Outpatient Imaging [facility] [address] [place], [place] [address]- [phone] Discharge Disposition: Home or Self Care Attending Physician: Elisha Purcell MD Vital Signs No data available for this section Problem List Condition Effective Dates Status Health Status Informant Acute laryngitis1 05/11/15 Resolved Acute pharyngitis2 05/11/15 Resolved Acute urinary tract 09/18/12 Resolved infection3 Anemia4 05/23/12 Resolved Hip pain(Confirmed) Active Acute URI(Confirmed) < 05/22/17 Resolved Benign Active hypertension(Confirm ed)5 Bone Active disorder(Confirmed) Diverticular disease Active of colon6 Dizziness(Confirmed) < 01/18/17 Resolved Epigastric Active pain(Confirmed) Bad odor of Active urine(Confirmed) Gastroesophageal 01/13/11 Active reflux disease7 Headache(Confirmed) Active Hemangioma of liver8 Active HTN - Resolved Hypertension(Confirm ed) Hypercholesterolemia Active 9 Hypercholesterolemia < 01/18/17 Resolved (Confirmed) Physical Active exam(Confirmed) Microscopic 05/13/15 Resolved uvqfdkbxe43 Ghnoviddifsyfh57 Active Osteoarthritis(Confi Active rmed) Hbbgrwphbm76 Active Osteopenia(Confirmed Resolved ) Fatpzdg96 11/29/12 Resolved Physical examination 05/11/15 Resolved wprzaogih06 Spasm of back 09/12/14 Resolved lcrgawe79, 16, 17 Tension-type 01/12/15 Resolved dyjscohm95, 19 Urinary tract 10/17/13 Resolved infectious yimibgb72, 21, 22 1Data migrated from [employer] [...] Date Status Refusal Reason influenza virus vaccine, inactivated1 07/19/17 Given influenza virus vaccine, inactivated 09/13/16 Given 1Result Comment: Lot#: [id number] Exp: 05-12-2018 [facility]: [id number] Location:Right Deltoid Patient did well before and after the injection. Procedures Procedure Date Related Diagnosis Body Site section Suspension of bladder Social History Social History Type Response Substance Abuse Use: None. Exercise Exercise duration: 30. Exercise frequency: Daily. Exercise type: Walking. Alcohol Never Smoking Status Never smoker; Exposure to Tobacco Smoke None; Cigarette Smoking Last 365 Days No; Reg Smoking Cessation Counseling No Assessment and Plan No data available for this section
--- OUTSIDE RECORDS SUMMARY | 2018-12-19 02:21 | XMS REPORT | Summary of Care ---
Author Author [facility] Primary Care [facility] Address Unknown Phone Unavailable Encounter HQ Reggie_derek(FIN) [id number] Date(s): 01/16/18 - 01/16/[address] [facility] [address] [address]- [phone] Discharge Disposition: Home or Self Care Attending Physician: Elihsa Purcell MD Vital Signs Most recent to 1 oldest [Reference Range]: Height 147.32 cm (01/16/18 7:55 AM) Temperature Oral 97.9 DegF [96.4-99.1 DegF] (01/16/18 7:55 AM) Blood Pressure 114/78 mmHg [90-140/60-90 mmHg] (01/16/18 7:55 AM) Peripheral Pulse 71 bpm Rate [60-100 bpm] (01/16/18 7:55 AM) Weight 58.182 kg (01/16/18 7:55 AM) Body Mass Index 26.81 m2 (01/16/18 7:55 AM) Problem List Condition Effective Dates Status Health Status Informant Acute laryngitis1 05/11/15 Resolved Acute pharyngitis2 05/11/15 Resolved Acute urinary tract 09/18/12 Resolved infection3 Anemia4 05/23/12 Resolved Hip pain(Confirmed) Active Acute URI(Confirmed) < 05/22/17 Resolved Benign Active hypertension(Confirm ed)5 Bone Active disorder(Confirmed) Diverticular disease Active of colon6 Dizziness(Confirmed) < 01/18/17 Resolved Epigastric Active pain(Confirmed) Bad odor of Resolved urine(Confirmed) Gastroesophageal 01/13/11 Active reflux disease7 Headache(Confirmed) Active Hemangioma of liver8 Active HTN - Resolved Hypertension(Confirm ed) Hypercholesterolemia Active 9 Hypercholesterolemia < 01/18/17 Resolved (Confirmed) Hyperlipidemia(Confi Active rmed) Physical Active exam(Confirmed) Microscopic 05/13/15 Resolved tuiwchpxh92 Phwbxzymwwwjqu55 Active Osteoarthritis(Confi Active rmed) Oudtrxgnoj03 Active Osteopenia(Confirmed Resolved ) Bupzmep63 11/29/12 Resolved Physical examination 05/11/15 Resolved eymaqlfqz95 Spasm of back 09/12/14 Resolved iooznlx30, 16, 17 Tension-type 01/12/15 Resolved qoyflyfs06, 19 Urinary tract 10/17/13 Resolved infectious , [...] Substance Reaction Severity Status NKDA Active Medications lisinopril 10 mg oral tablet 10 mg=1 tab, PO, Daily, # 90 tab, 2 Refill(s), Pharmacy: [id number] Start Date: 01/16/18 Status: Ordered Results No data available for this section Immunizations Given and Recorded Vaccine Date Status Refusal Reason influenza virus vaccine, inactivated1 07/19/17 Given influenza virus vaccine, inactivated 09/13/16 Given 1Result Comment: Lot#: [id number] Exp: 05-12-2018 [facility]: [id number] Location:Right Deltoid Patient did well before and after the injection. Procedures Procedure Date Related Diagnosis Body Site Status Mammogram1 12/01/17 Completed section Completed Suspension of bladder Completed 1normal, at [facility] Social History Social History Type Response Substance Abuse Use: None. Exercise Exercise duration: 30. Exercise frequency: Daily. Exercise type: Walking.1 Alcohol Never Smoking Status Never smoker; Exposure to Tobacco Smoke None; Cigarette Smoking Last 365 Days No; Reg Smoking Cessation Counseling No entered on: 01/16/18 1not at the moment Assessment and Plan No data available for this section
--- OUTSIDE RECORDS SUMMARY | 2018-12-19 02:21 | XMS REPORT | Summary of Care ---
Author Author [facility] Primary Care [facility] Address Unknown Phone Unavailable Encounter HQ Reggie_derek(FIN) [id number] Date(s): 11/20/17 - 11/20/17 [facility] [address] [address]- [phone] Discharge Disposition: Home or Self Care Attending Physician: Elisha Purcell MD Vital Signs Most recent to 1 oldest [Reference Range]: Height 149.86 cm (11/20/17 2:13 PM) Temperature Oral 97.9 DegF [96.4-99.1 DegF] (11/20/17 2:13 PM) Blood Pressure 110/70 mmHg [90-140/60-90 mmHg] (11/20/17 2:13 PM) Peripheral Pulse 76 bpm Rate [60-100 bpm] (11/20/17 2:13 PM) Weight 57.784 kg (11/20/17 2:13 PM) Body Mass Index 25.73 m2 (11/20/17 2:13 PM) Problem List Condition Effective Dates Status Health [...] rmed) Physical Active exam(Confirmed) Microscopic 05/13/15 Resolved Nkrcwjumyzenbl87 Active Osteoarthritis(Confi Active rmed) Qhthpbdvyq78 Active Osteopenia(Confirmed Resolved ) Vtkhflr40 11/29/12 Resolved Physical examination 05/11/15 Resolved Spasm of back 09/12/14 Resolved tusdfmv65, 16, 17 Tension-type 01/12/15 Resolved zikfnyqh54, 19 Urinary tract 10/17/13 Resolved infectious ovlmgdv94, 21, 22 1Data migrated from [employer] [...] Substance Reaction Severity Status NKDA Active Medications ibuprofen 800 mg oral tablet 800 mg=1 tab, PO, Q8H, # 30 tab, 1 Refill(s), Pharmacy: [id number] Start Date: 11/20/17 Status: Ordered Macrobid 100 mg oral capsule 100 mg=1 cap, PO, BID, X 7 day, # 14 cap, 0 Refill(s), Pharmacy: [id number] Start Date: 11/23/17 Stop Date: 11/30/17 Status: Completed Results No data available for this section Immunizations Given and Recorded Vaccine Date Status Refusal Reason influenza virus vaccine, inactivated1 07/19/17 Given influenza virus vaccine, inactivated 09/13/16 Given 1Result Comment: Lot#: [id number] Exp: 05-12-2018 [facility]: [id number] Location:Right Deltoid Patient did well before and after the injection. Procedures Procedure Date Related Diagnosis Body Site Status Mammogram1 12/01/17 Completed section Completed Suspension of bladder Completed 1[facility] Social History Social History Type Response [...]
--- OUTSIDE RECORDS SUMMARY | 2018-12-19 02:21 | XMS REPORT | Summary of Care ---
Author Author [facility] Primary Care [facility] Address Unknown Phone Unavailable Encounter HQ Reggie_derek(FIN) [id number] Date(s): 01/16/18 - 01/16/18 [facility] [address] [address]- [phone] Discharge Disposition: Home or Self Care Attending [...] rmed) Physical Active exam(Confirmed) Microscopic 05/13/15 Resolved Ivpeughhixkpcz67 Active Osteoarthritis(Confi Active rmed) Lihvstqbit68 Active Osteopenia(Confirmed Resolved ) Qiptita60 11/29/12 Resolved Physical examination 05/11/15 Resolved vhvpfffke67 Spasm of back 09/12/14 Resolved jsgdjdu24, 16, 17 Tension-type 01/12/15 Resolved acpnsqfp39, 19 Urinary tract 10/17/13 Resolved infectious utqaidq72, 21, 22 1Data migrated from [employer] [...] Daily, # 90 tab, 2 Refill(s), Pharmacy: [id number] Start Date: 01/16/18 Status: Ordered Results No data available for this section Immunizations Given and Recorded Vaccine Date Status Refusal Reason influenza virus vaccine, inactivated1 07/19/17 Given influenza virus vaccine, inactivated 09/13/16 Given 1Result Comment: Lot#: [id number] Exp: 05-12-2018 [facility]: 14511-361-11 Location:Right Deltoid Patient did well before and after the injection. Procedures Procedure Date Related Diagnosis Body Site Status Mammogram1 12/01/17 Completed section Completed Suspension of bladder Completed 1normal, at [facility] Social History Social History Type [...]
--- OUTSIDE RECORDS SUMMARY | 2018-12-19 02:21 | XMS REPORT | Summary of Care ---
Author Author [facility] Primary [facility] Organization [facility] Address Unknown Phone Unavailable Encounter HQ Clarisar_derek(FIN) [id number] Date(s): 10/02/17 - 10/02/17 [facility] [address] [address]- [phone] Discharge Disposition: Home or Self Care Attending Physician: Elisha Purcell MD Vital Signs Most recent to 1 oldest [Reference Range]: Height 149.86 cm (10/02/17 2:32 PM) Temperature Oral 98.4 DegF [96.4-99.1 DegF] (10/02/17 2:32 PM) Blood Pressure 121/77 mmHg [90-140/60-90 mmHg] (10/02/17 2:32 PM) Peripheral Pulse 71 bpm Rate [60-100 bpm] (10/02/17 2:32 PM) Weight 58.636 kg (10/02/17 2:32 PM) Body Mass Index 26.11 m2 (10/02/17 2:32 PM) Problem List Condition Effective Dates Status [...] (Confirmed) Physical Active exam(Confirmed) Microscopic 05/13/15 Resolved idhasgvrr81 Acokaertfbxaen49 Active Osteoarthritis(Confi Active rmed) Eurvynztis68 Active Osteopenia(Confirmed Resolved ) Fcmdyiv51 11/29/12 Resolved Physical examination 05/11/15 Resolved Spasm of back 09/12/14 Resolved yrykfuc18, 16, 17 Tension-type 01/12/15 Resolved coqwjyea35, 19 Urinary tract 10/17/13 Resolved infectious vftwafi54, 21, 22 1Data migrated from [employer] [...] Substance Reaction Severity Status NKDA Active Medications Atelvia 35 mg oral enteric coated tablet 35 mg=1 tab, PO, qWeek, # 12 tab, 3 Refill(s), Pharmacy: [facility] [id number] Start Date: 10/02/17 Status: Ordered Bactrim DS 800 mg- 160 mg oral tablet 1 tab, PO, BID, for UTI, X 3 day, # 6 tab, 0 Refill(s), Pharmacy: [facility] Start Date: 10/02/17 Stop Date: 10/05/17 Status: Ordered lisinopril 10 mg oral tablet 10 mg=1 tab, PO, Daily, # 90 tab, 1 Refill(s), Pharmacy: [id number] Start Date: 10/02/17 Status: Ordered Results No data available for this section Immunizations Given and Recorded Vaccine Date Status Refusal Reason influenza virus vaccine, inactivated1 07/19/17 Given influenza virus vaccine, inactivated 09/13/16 Given 1Result Comment: Lot#: [id number] Exp: 05-12-2018 [facility]: [id number] Location:Right Deltoid Patient did well before and [...]
--- OUTSIDE RECORDS SUMMARY | 2018-12-19 02:21 | XMS REPORT | Summary of Care ---
Author Author [facility] Primary [facility] Organization [facility] Address Unknown Phone Unavailable Encounter HQ Rosanne(FIN) [id number] Date(s): 11/20/17 - 11/20/17 [facility] [address] [address]- [phone] Discharge Disposition: Home or Self Care Attending [...] (Confirmed) Physical Active exam(Confirmed) Microscopic 05/13/15 Resolved tinfypxxl34 Rzngdqvffkrrsu00 Active Osteoarthritis(Confi Active rmed) Nxubxymegs14 Active Osteopenia(Confirmed Resolved ) Vncxqmf02 11/29/12 Resolved Physical examination 05/11/15 Resolved vquaxkung33 Spasm of back 09/12/14 Resolved , 16, 17 Tension-type 01/12/15 Resolved lwivybcq74, 19 Urinary tract 10/17/13 Resolved infectious pnawfcd12, 21, 22 1Data migrated from [employer] [...] Q8H, # 30 tab, 1 Refill(s), Pharmacy: [facility] [id number] Start Date: 11/20/17 Status: Ordered Results No data available for this section Immunizations Given and Recorded Vaccine Date Status Refusal Reason influenza virus vaccine, inactivated1 07/19/17 Given influenza virus vaccine, inactivated 09/13/16 Given 1Result Comment: Lot#: [id number] Exp: 05-12-2018 [facility]: [id number] Location:Right Deltoid Patient did well before and [...]
--- OUTSIDE RECORDS SUMMARY | 2018-12-19 02:22 | XMS REPORT | Summary of Care ---
Author Author [facility] Primary Care [facility] Address Unknown Phone Unavailable Encounter HQ Clarisar_derek(FIN) [id number] Date(s): 04/24/18 - 04/24/18 [facility] Care [facility] [address] [address]- [phone] Discharge Disposition: Home or Self Care Attending Physician: Elisha Purcell MD Vital Signs Most recent to 1 oldest [Reference Range]: Height 147.32 cm (04/24/18 11:01 AM) Temperature Oral 98.2 DegF [96.4-99.1 DegF] (04/24/18 11:01 AM) Blood Pressure 113/74 mmHg [90-140/60-90 mmHg] (04/24/18 11:01 AM) Peripheral Pulse 84 bpm Rate [60-100 bpm] (04/24/18 11:01 AM) Weight 59.091 kg (04/24/18 11:01 AM) Body Mass Index 27.23 m2 (04/24/18 11:01 AM) Problem List Condition Effective Dates Status Health Status Informant Acute laryngitis1 05/11/15 Resolved Acute pharyngitis2 05/11/15 Resolved Acute urinary tract 09/18/12 Resolved infection3 Anemia4 05/23/12 Resolved Hip pain(Confirmed) Active Acute URI(Confirmed) < 05/22/17 Resolved Benign Active hypertension(Confirm ed)5 Bone Active disorder(Confirmed) Diverticular disease Active of colon6 Dizziness(Confirmed) < 01/18/17 Resolved Dysuria(Confirmed) Active Epigastric Active pain(Confirmed) Bad odor of Resolved urine(Confirmed) Gastroesophageal 01/13/11 Active reflux disease7 Headache(Confirmed) Active Hemangioma of liver8 Active HTN - Resolved Hypertension(Confirm ed) Hypercholesterolemia Active 9 Hypercholesterolemia < 01/18/17 Resolved (Confirmed) Hyperlipidemia(Confi Active rmed) Physical Active exam(Confirmed) Microscopic 05/13/15 Resolved qozuqkuiz95 Pqfjkillhchzgy28 Active Osteoarthritis(Confi Active rmed) Dvryoiacne62 Active Osteopenia(Confirmed Resolved ) Twuxoib24 11/29/12 Resolved Physical examination 05/11/15 Resolved twqdqxjgy47 Spasm of back 09/12/14 Resolved , 16, 17 Tension-type 01/12/15 Resolved , 19 Urinary tract 10/17/13 Resolved infectious ruyvvlx82, 21, 22 1Data migrated from [employer] [...] Substance Reaction Severity Status NKDA Active Medications Bactrim DS 800 mg- 160 mg oral tablet 1 tab, PO, BID, for UTI, X 3 day, # 6 tab, 0 Refill(s), Pharmacy: [facility]144 Start Date: 04/24/18 Stop Date: 04/27/18 Status: Ordered Results No data available for this section Immunizations Given and Recorded Vaccine Date Status Refusal Reason influenza virus vaccine, inactivated1 07/19/17 Given influenza virus vaccine, inactivated 09/13/16 Given 1Result Comment: Lot#: [id number] Exp: 05-12-2018 [facility]: [id number] Location:Right Deltoid Patient did well before and after the injection. Procedures Procedure Date Related Diagnosis Body Site Status Mammogram1 12/01/17 Completed section Completed Suspension of bladder Completed 1normal, at [facility] Social History Social History Type Response Substance Abuse Use: None. Exercise Exercise duration: 30. Exercise frequency: Daily. Exercise type: Walking.1 Alcohol Never Smoking Status Never smoker; Exposure to Tobacco Smoke None; Cigarette Smoking Last 365 Days No; Reg Smoking Cessation Counseling No entered on: 04/24/18 1not at the moment Assessment and Plan No data available for this section
--- OUTSIDE RECORDS SUMMARY | 2018-12-19 02:22 | XMS REPORT ---
Author Author Admin, [facility] Organization [facility] Address [address] [place] [address] Phone Allergies, Adverse Reactions, Alerts Allergy Name Reaction Description Start Date Severity Status Provider Allergies Unknown Conditions or Problems Problem Name Problem Code Onset Date Status Entry Date Provider Comment Standard Description Annotate Problems Unknown Medication List Medication Instructions Start Date Stop Date Generic Name NDC Status Provider Patient Instruction Drug Treatment Unknown - unknown Vital Signs Date Name Value Unit Range Description weight E&M 128 [lb_av] Weight Measured Procedures Code Procedure Name Date Entry Date Standard Description CPT-HE001 Health Education/Supportive Counseling 16: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
--- OUTSIDE RECORDS SUMMARY | 2018-12-19 02:22 | XMS REPORT | Summary of Care ---
Author Author [facility] Primary Care [facility] Address Unknown Phone Unavailable Encounter HQ Migdaliantr_derek(FIN) [id number] Date(s): 07/24/18 - 07/24/18 [facility] Care [facility] [address] [address]- [phone] Discharge Disposition: Home or Self Care Attending Physician: Elisha Purcell MD Vital Signs Most recent to 1 oldest [Reference Range]: Height 147.32 cm (07/24/18 7:59 AM) Temperature Oral 97.9 DegF [96.4-99.1 DegF] (07/24/18 7:59 AM) Blood Pressure 135/80 mmHg [90-140/60-90 mmHg] (07/24/18 7:59 AM) Respiratory Rate 20 BRMIN [14-20 BRMIN] (07/24/18 7:59 AM) Peripheral Pulse 71 bpm Rate [60-100 bpm] (07/24/18 7:59 AM) Weight 61.364 kg (07/24/18 7:59 AM) Body Mass Index 28.27 m2 (07/24/18 7:59 AM) Problem List Condition Effective Dates Status Health Status Informant Acute laryngitis1 05/11/15 Resolved Acute pharyngitis2 05/11/15 Resolved Acute urinary tract 09/18/12 Resolved infection3 Anemia4 05/23/12 Resolved Hip pain(Confirmed) Active Acute URI(Confirmed) < 05/22/17 Resolved Benign Active hypertension(Confirm ed)5 Bone Active disorder(Confirmed) Diverticular disease Active of colon6 Dizziness(Confirmed) < 01/18/17 Resolved Dysuria(Confirmed) Active Epigastric Active pain(Confirmed) FHx: diabetes Active mellitus(Confirmed) Bad odor of Resolved urine(Confirmed) Gastroesophageal 01/13/11 Active reflux disease7 Headache(Confirmed) Resolved Hemangioma of liver8 Active HTN - Resolved Hypertension(Confirm ed) Hypercholesterolemia Active 9 Hypercholesterolemia < 01/18/17 Resolved (Confirmed) Hyperlipidemia(Confi Active rmed) Physical Active exam(Confirmed) Microscopic 05/13/15 Resolved jyimkkspi29 Whsbpiwbhicqvn45 Active Osteoarthritis(Confi Active rmed) Fsttgyzqag60 Active Osteopenia(Confirmed Resolved ) Qdtyuar55 11/29/12 Resolved Physical examination 05/11/15 Resolved xfluvjadu66 Spasm of back 09/12/14 Resolved xevcffe99, 16, 17 Tension-type 01/12/15 Resolved yoptqdtq15, 19 Urinary tract 10/17/13 Resolved infectious epxtwpx36, 21, 22 1Data migrated from [employer] [...] qWeek, # 12 tab, 3 Refill(s), Pharmacy: [id number] Start Date: 07/24/18 Status: Ordered lisinopril 10 mg oral tablet 10 mg=1 tab, PO, Daily, # 90 tab, 2 Refill(s), Pharmacy: [facility] [id number] Start Date: 07/24/18 Status: Ordered Results No data available for this section Immunizations Given and Recorded Vaccine Date Status Refusal Reason influenza virus vaccine, inactivated 07/24/18 Given influenza virus vaccine, inactivated1 07/19/17 Given influenza virus vaccine, inactivated 09/13/16 Given 1Result Comment: Lot#: [id number] Exp: 05-12-2018 [facility]: [id number] Location:Right Deltoid Patient did well before and after the injection. Procedures Procedure Date Related Diagnosis Body Site Status Colonoscopy1 06/13/18 Completed Mammogram2 12/01/17 Completed Pap smear and HPV cotesting 09/15/17 Completed section Completed Suspension of bladder Completed 1Diverticulosis in the sigmoid colon Repeat in 10 years. 2normal, [facility] Social History Social History Type Response Substance Abuse Use: None. Exercise Exercise duration: 30. Exercise frequency: Daily. Exercise type: Walking.1 Alcohol Never Smoking Status Never smoker; Exposure to Tobacco Smoke None; Cigarette Smoking Last 365 Days No; Reg Smoking Cessation Counseling No entered on: 10/18/18 1not at the moment Assessment and Plan No data available for this section
--- OUTSIDE RECORDS SUMMARY | 2018-12-19 02:22 | XMS REPORT | Summary of Care ---
Author Author [facility] Primary Care [facility] Address Unknown Phone Unavailable Encounter HQ Clarisar_derek(FIN) [id number] Date(s): 01/16/18 - 01/16/18 [facility] Care [facility] [address] [address]- [phone] Discharge Disposition: Home or Self Care Attending [...] rmed) Physical Active exam(Confirmed) Microscopic 05/13/15 Resolved jpsqaunhn73 Smyapzmxkhgjkc06 Active Osteoarthritis(Confi Active rmed) Uzvhntpcqv09 Active Osteopenia(Confirmed Resolved ) Hmxytpg03 11/29/12 Resolved Physical examination 05/11/15 Resolved eepelxhfu38 Spasm of back 09/12/14 Resolved ihjkaiu75, 16, 17 Tension-type 01/12/15 Resolved ypedbzpz15, 19 Urinary tract 10/17/13 Resolved infectious yrjnczd58, 21, 22 1Data migrated from [employer] [...] Daily, # 90 tab, 2 Refill(s), Pharmacy: [facility] [id number] Start Date: 01/16/18 Status: Ordered Results No data available for this section Immunizations Given and Recorded Vaccine Date Status Refusal Reason influenza virus vaccine, inactivated1 07/19/17 Given influenza virus vaccine, inactivated 09/13/16 Given 1Result Comment: Lot#: [id number] Exp: 05-12-2018 [facility][NOTE 3]: [id number] Location:Right Deltoid Patient did well before and after the injection. Procedures Procedure Date Related Diagnosis Body Site Status Mammogram1 12/01/17 Completed section Completed Suspension of bladder Completed 1normal, at [facility] Social History Social History Type Response [...]
--- OUTSIDE RECORDS SUMMARY | 2018-12-19 02:22 | XMS REPORT | Summary of Care ---
Author Author [facility] Primary [facility] Address Unknown Phone Unavailable Encounter HQ Encntr_alibrad(FIN) [id number] Date(s): 05/01/18 - 05/02/18 [facility] [address] [address]- [phone] Vital Signs No data available for this [...] rmed) Physical Active exam(Confirmed) Microscopic 05/13/15 Resolved ytxkejhss04 Cspkckvgmhbyez49 Active Osteoarthritis(Confi Active rmed) Eyrnalmhih98 Active Osteopenia(Confirmed Resolved ) Tgdpejo33 11/29/12 Resolved Physical examination 05/11/15 Resolved bcbkumrhi84 Spasm of back 09/12/14 Resolved sordobk05, 16, 17 Tension-type 01/12/15 Resolved cyqubthz49, 19 Urinary tract 10/17/13 Resolved infectious ywzznmz51, 21, 22 1Data migrated from [employer] [...] Substance Reaction Severity Status NKDA Active Medications Macrobid 100 mg oral capsule 100 mg=1 cap, PO, BID, X 7 day, # 14 cap, 0 Refill(s), Pharmacy: [facility] 5612 Start Date: 05/02/18 Stop Date: 05/09/18 Status: Ordered Results No data available for this section Immunizations Given and Recorded Vaccine Date Status Refusal Reason influenza virus vaccine, inactivated1 07/19/17 Given influenza virus vaccine, inactivated 09/13/16 Given 1Result Comment: Lot#: [id number] Exp: 05-12-[address] [facility]: [id number] Location:Right Deltoid Patient did well before and after the injection. Procedures Procedure Date Related Diagnosis Body Site Status Mammogram1 12/01/17 Completed section Completed Suspension of bladder Completed 1normal, at [facility] Social History Social [...]
[2018-12-19] MEDS ORDERED: MAGNESIUM/ALUMINUM/SIMETHICONE 30 ML UDC PO ONE (02:45)
[2018-12-19] MEDS ORDERED: LIDOCAINE VISC 2% SOLN 15 ML UDC PO ONE (02:45)
[2018-12-19] MEDS ORDERED: BELLADONNA ALK/PHENOBARBITAL 5 ML UDC PO STA (02:45)
[2018-12-19 02:49] LABS: BASOPHILS % 0.3 % (0.0-1.0); EOSINOPHILS % 0.4 % (0.0-6.0); HEMATOCRIT 36.6 % (34.2-44.1); HEMOGLOBIN 12.3 g/dL (12.0-16.0); LYMPHOCYTES # (AUTO) 1.2 (1.0-3.2); LYMPHOCYTES % 12.7 % (18.0-39.1); MEAN CORPUSCULAR HEMOGLOBIN 31.1 pg (28-32); MEAN CORPUSCULAR HGB CONC 33.6 g/dL (31-35); MEAN CORPUSCULAR VOLUME 92.7 fL (81-99); MONOCYTES # (AUTO) 0.5 (0.2-0.8); NEUTROPHILS # (AUTO) 7.4 (2.1-6.9); NEUTROPHILS % 81.4 % (38.7-80.0); PLATELET COUNT 226 x10e3/uL (140-360); RED BLOOD COUNT 3.95 x10e6/uL (3.6-5.1); RED CELL DISTRIBUTION WIDTH 14.3 % (11.7-14.4)
--- NOTE | 2018-12-19 03:07 | NUR ---
pt states no change in pain after GI Cocktail.
[2018-12-19 03:09] LABS: ALANINE AMINOTRANSFERASE 36 IU/L (0-55); ALBUMIN 3.7 g/dL (3.5-5.0); ALBUMIN/GLOBULIN RATIO 1.5 (0.8-2.0); ALKALINE PHOSPHATASE 54 IU/L (40-150); AMYLASE 61 U/L (25-125); ANION GAP 15.4 mmol/L (8-16); BLOOD UREA NITROGEN 13 mg/dL (7-26); BUN/CREATININE RATIO 19 (6-25); CALCIUM 8.6 mg/dL (8.4-10.2); CARBON DIOXIDE 23 mmol/L (22-29); CHLORIDE 101 mmol/L (98-107); CREATINE KINASE 31 IU/L (29-168); CREATININE, SERUM 0.67 mg/dL (0.57-1.11); EST GLOMERULAR FILTRATION RATE > 60 ML/MIN (60-); GLUCOSE 137 mg/dL (74-118); LIPASE 26 U/L (8-78); POTASSIUM 3.4 mmol/L (3.5-5.1); SODIUM 136 mmol/L (136-145)
[2018-12-19] MEDS ORDERED: KETOROLAC TROMETHAMINE 30 MG/ML VIAL IV STA (03:21)
--- NOTE | 2018-12-19 03:25 | NUR ---
medicated for pain with toradol per orders. awake alert skin w/d resp nonlab, nad noted.
--- NOTE | 2018-12-19 04:06 | NUR ---
PT REPORTS PAIN MINIMAL AFTER MEDICATION, AWAKE ALERT SKIN W/D RESP NONLAB. NAD NOTD
== END 2018-12-19 04:07 | disposition home or self-care (01) ==
LOC: ER 02:17
DX: R10.13 Epigastric pain (principal); R11.0 Nausea; K29.00 Acute gastritis without bleeding
CPT/HCPCS: 36415; 80053; 82150; 82550; 82553; 83690; 84484; 85025; 93005; 99284; J1885